=== PATIENT | female | born 1950 | race Caucasian/White ===

== ENCOUNTER 2019-02-17 07:09 | Inpatient (IN) | payer MEDICARE, BC ==
[~2019-02-17 07:09] MED LIST: CEFAZOLIN 2 Gram 2 GM/50 ML BAG IVPB SCH; CELECOXIB 100 MG CAPSULE PO ONE; FAMOTIDINE 20MG TABLET PO ONE; MECLIZINE 25 MG TABLET PO ONE; METOCLOPRAMIDE 10 MG TABLET PO ONE; VANCOMYCIN 1GM/200ML PREMIX 1 GM/200 ML PIGGYBACK IVPB SCH
[2019-02-17] MEDS ORDERED: RINGERS SOLUTION,LACTATED 1,000 ML IV ONE ×3 (07:50→10:09)
[2019-02-17 08:19] LABS: ABO GROUP A; ANTIBODY SCREEN NEGATIVE (NEGATIVE); RH TYPE POSITIVE
[2019-02-17] MEDS ORDERED: BUPIVACAINE 0.5% W/EPI MPF 30 ML VIAL SQ ONE (09:50)
[2019-02-17] MEDS ORDERED: TRAMADOL HCL 50 MG TABLET PO PRN (11:19)
[2019-02-17] MEDS ORDERED: HYDROMORPHONE HCL 2 MG/ML VIAL IM PRN (11:19)
[2019-02-17] MEDS ORDERED: MAGNESIUM HYDROXIDE 30 ML UDC PO PRN (11:19)
[2019-02-17] MEDS ORDERED: NALOXONE 0.4 MG/1 ML VIAL IVP PRN (11:19)
[2019-02-17] MEDS ORDERED: ACETAMINOPHEN W/ CODEINE 300MG/60MG TABLET PO PRN ×2 (11:19)
[2019-02-17] MEDS ORDERED: BISACODYL 10 MG SUPP RC PRN (11:19)
[2019-02-17] MEDS ORDERED: ZOLPIDEM TARTRATE 5 MG TABLET PO PRN (11:19)
[2019-02-17] MEDS ORDERED: ONDANSETRON HCL IV 4 MG/2 ML VIAL IVP PRN (11:19)
[2019-02-17] MEDS ORDERED: AL HYDROX/MAG HYDROX 30ML UD PO PRN (11:19)
[2019-02-17] MEDS ORDERED: HYDROCODONE/APAP 10/325 TABLET PO PRN (11:19)
[2019-02-17] MEDS ORDERED: KETOROLAC 30 MG/ML VIAL IVP PRN ×2 (11:19)
[2019-02-17] MEDS ORDERED: DIPHENHYDRAMINE HCL 25 MG CAPSULE PO PRN (11:19)
[2019-02-17] MEDS: BUSPIRONE 10 MG PO SCH ×3 (13:28→22:08)
[2019-02-17] MEDS ORDERED: GLYCOPYRROLATE 0.2 MG/ML ML IV ONE (14:00)
[2019-02-17] MEDS ORDERED: EPHEDRINE SULFATE 50 MG/ML ML IV ONE (14:00)
[2019-02-17] MEDS ORDERED: 0.9 % SODIUM CHLORIDE 10 ML VIAL IVP ONE (14:00)
[2019-02-17] MEDS ORDERED: KETAMINE HCL 100MG/1ML VIAL INJ ONE (14:00)
[2019-02-17] MEDS ORDERED: PROPOFOL 10 MG/ML VIAL IV ONE (14:00)
[2019-02-17] MEDS ORDERED: ROPIVACAINE HCL (NAROPIN) /PF 5MG/ML 20ML VIAL IV ONE (14:00)
[2019-02-17] MEDS ORDERED: PHENYLEPHRINE HCL 10 MG/ML VIAL IVP ONE (14:00)
[2019-02-17] MEDS ORDERED: DEXAMETHASONE 4 MG/ML 1ML VIAL IVP ONE (14:00)
[2019-02-17] MEDS ORDERED: MIDAZOLAM HCL 2MG/2ML VIAL IV ONE (14:00)
--- NOTE | 2019-02-17 16:10 | Rehab Evaluation ---
Patient Information - Patient Information Diagnosis: DJD L hip Ordered Treatment: PT Evaluate and Treat Status: Initial Evaluation Surgery: Yes (THR L LE) Date of Surgery: 02/17/19 Past Medical/Surgical Hx: PAST MEDICAL/SURGICAL HISTORY Past Surgical History FACET INJECTION PMH - Respiratory Hx Respiratory Disorders No PMH - Cardiovascular Hx Cardiovascular Disorders Yes Hx Abnormal EKG Yes Hx Hypotension Yes: RUNS A LITTLE LOW D/T HEART MEDS Hx Irregular Heartbeat Yes: TACCHYCARDIA ONSET 2013 R/T ANXIETY.CONTROL W MEDS Exercise Tolerance Fair Comment: SEES CARDIO EVERY 6 MONTHS. PT WAS VERY ACTIVE BEFORE HIP PAIN STARTED PMH - Neuro Hx Neurological Disorders No PMH - GI Hx Gastrointestinal Disorders Yes Hx of Loss of Appetite Yes: TAKES MEDS TO BOOST APPETITE POOR APPETITE W ANXIETY PMH - Hx Genitourinary Disorders No Hx Age of Menopause 60 PMH - Endocrine Hx Endocrine Disorders No PMH - Musculoskeletal Hx Musculoskeletal Disorders Yes Hx Arthritis Yes: LEFT HIP Hx Gout Yes: POSSIBLY PMH - Psych Hx Psychiatric Problems Yes Hx Anxiety Yes: EXTREME VERY ANXIOUS ABOUT SX Hx Depression Yes PMH - Hematology/Oncology Hx Hematology/Oncology No Disorders Premorbid Status: Detail (The patient was independent with all mobility prior to surgery and was very active.) Social History: Detail (The patient lives with spouse in a one story house with 2 steps at the enterance and no railings. The bathroom is equipped with : a walk in shower, standard height toilet with a riser seat and shower bench. The patient has a walker with wheels.) Precautions: [place], Fall, Other (THR precautions L LE) - Time With Patient Total Time Spent With Patient (Min): 30 Treatment Procedures: Detail (Initial Evaluation, gait training) Subjective Information - Subjective Information Per Patient (The patient had complaints of left hip pain level 3 using 0-10 pain scale.) Objective Data - Mental Status Patient Orientation: Oriented x3 - Visual Perception Appears within normal limits for therapeutic activities - ROM Not within normal limits (The patient's L hip was within THR precautions. All other LE AROM was WNL.) - Strength/Tone Not within normal limits (The patient's L LE strength was not tested s/p surgery, however was functional ie: patient was able to lift LE off bed. R LE strength was WFL,) - Bed Mobility Independent (The patient was independent with supine to and from sit, following THR precautions and scooting up in bed.) - Transfers Independent (The patient was independent with sit to stand and toilet transfers.) - Balance Balance Sitting: Good Balance Standing: Good - Gait Detail (The patient ambulated with front wheeled walker a distance of 80 feet x 1 WBAT on the L LE with supervision for safety only.) Therapy Assessment - Therapy Assessment Detail (The patient was independent with bed mobility and transfers and ambulates with supervision. Feel the patient will progress well with mobility.) Patient Education - Patient Education Teaching Topic: Precautions (The patient was able to indentify THR precautions.) Response: Return Demonstration Teaching Method: Handout Teaching Recipient: Patient Barriers To Learning: None Problem List - Problem List Physical Therapy Problem List: Detail (Decreased L LE strength) Goals - Goals Physical Therapy Goals: 1) The patient will be independent with THR HEP. 2) The patient will ambulate on stairs with supervision for safety using proper technique. Prognosis - Prognosis Good Plan - Plan Physical Therapy Plan: PT 1-2 sessions with gait training on levels and stairs and instruction in HEP.
[2019-02-17] MEDS: CEFAZOLIN 2 Gram 2 GM/50 ML BAG IVPB SCH (16:13)
[2019-02-17] MEDS: PATIENT OWN MED: CLONAZEPAM 0.5 MG PO SCH ×2 (16:21→22:07)
[2019-02-17] MEDS: HYDROCODONE/APAP 10/325 TABLET PO PRN ×2 (18:02→22:04)
[2019-02-17] MEDS: POTASSIUM CHLORIDE/D5-0.9%NACL 20 MEQ/1,000 ML BAG IV SCH (18:04)
[2019-02-17] MEDS ORDERED: DILTIAZEM 180 MG PO SCH (22:00)
[2019-02-17] MEDS: ACETAMINOPHEN 325 MG TAB PO PRN (22:04)
[2019-02-17] MEDS: DOCUSATE SODIUM 100 MG CAPSULE PO SCH (22:06)
[2019-02-18] MEDS: POTASSIUM CHLORIDE/D5-0.9%NACL 20 MEQ/1,000 ML BAG IV SCH ×2 (02:15→08:52)
[2019-02-18] MEDS: HYDROCODONE/APAP 10/325 TABLET PO PRN ×3 (02:23→11:54)
[2019-02-18] MEDS: ACETAMINOPHEN 325 MG TAB PO PRN ×3 (02:23→11:55)
[2019-02-18] MEDS: CEFAZOLIN 2 Gram 2 GM/50 ML BAG IVPB SCH ×2 (02:25→09:41)
[2019-02-18] MEDS: BUSPIRONE 10 MG PO SCH ×2 (06:09→09:43)
[2019-02-18 07:13] LABS: HEMATOCRIT 31.3 % (35.0-47.0)
[2019-02-18 07:27] LABS: BLOOD UREA NITROGEN 9 mg/dL (8-23); CREATININE 0.6 mg/dL (0.5-0.9); EST GLOMERULAR FILTRATION RATE > 60 mL/min; GLUCOSE,RANDOM 165 mg/dL (74-109)
[2019-02-18] MEDS ORDERED: PATIENT OWN MED: CLONAZEPAM 0.5 MG PO SCH (09:15)
[2019-02-18] MEDS: DOCUSATE SODIUM 100 MG CAPSULE PO SCH (09:42)
[2019-02-18] MEDS ORDERED: MULTIVITAMINS/MINERALS TABLET PO SCH (10:00)
[2019-02-18] MEDS ORDERED: FERROUS SULFATE 325 MG TAB PO SCH (10:00)
[2019-02-18] MEDS ORDERED: RIVAROXABAN 10 MG TABLET PO SCH (10:00)
[2019-02-18] MEDS ORDERED: CHOLECALCIFEROL 1,000 UNIT TABLET PO SCH (10:00)
--- NOTE | 2019-02-18 10:43 | Rehab Evaluation ---
Patient Information - Patient Information Diagnosis: DJD L hip Ordered Treatment: OT Evaluate and Treat Status: Initial Evaluation Surgery: Yes (THR L LE) Date of Surgery: 02/17/19 Past Medical/Surgical Hx: PAST MEDICAL/SURGICAL HISTORY Past Surgical History FACET INJECTION PMH - Respiratory Hx Respiratory Disorders No PMH - Cardiovascular Hx Cardiovascular Disorders Yes Hx Abnormal EKG Yes Hx Hypotension Yes: RUNS A LITTLE LOW D/T HEART MEDS Hx Irregular Heartbeat Yes: TACCHYCARDIA ONSET 2013 R/T ANXIETY.CONTROL W MEDS Exercise Tolerance Fair Comment: SEES CARDIO EVERY 6 MONTHS. PT WAS VERY ACTIVE BEFORE HIP PAIN STARTED PMH - Neuro Hx Neurological Disorders No PMH - GI Hx Gastrointestinal Disorders Yes Hx of Loss of Appetite Yes: TAKES MEDS TO BOOST APPETITE POOR APPETITE W ANXIETY PMH - Hx Genitourinary Disorders No Hx Age of Menopause 60 PMH - Endocrine Hx Endocrine Disorders No PMH - Musculoskeletal Hx Musculoskeletal Disorders Yes Hx Arthritis Yes: LEFT HIP Hx Gout Yes: POSSIBLY PMH - Psych Hx Psychiatric Problems Yes Hx Anxiety Yes: EXTREME VERY ANXIOUS ABOUT SX Hx Depression Yes PMH - Hematology/Oncology Hx Hematology/Oncology No Disorders Premorbid Status: Detail (The patient was independent with all mobility prior to surgery and was very active.) Social History: Detail (The patient lives with spouse in a one story house with 2 steps at the enterance and no railings. The bathroom is equipped with : a walk in shower, standard height toilet with a riser seat and shower bench. The patient has a walker with wheels.) Precautions: [place], Fall, Other (posterior THR precautions L LE) - Time With Patient Total Time Spent With Patient (Min): 32 (1 E 1 SC (9:15 - 9:47)) Treatment Procedures: Detail (OT eval: low complexity) Subjective Information - Subjective Information Per Patient (Ok to see per RN. Pt agreeable to OT eval and Tx.) Objective Data - Pain Pain Present: No Pain Scale Used: Numeric (1 - 10) (0/10) - Mental Status Patient Orientation: Oriented x3 - Visual Perception Appears within normal limits for therapeutic activities - ROM Within normal limits - Strength/Tone Within normal limits - Coordination Appears within normal limits for therapeutic activities - Bed Mobility Independent (Supine >< EOB) - Transfers Independent (sit >< stand from elevated and lower surfaces, initial verbal instruction to maintain MURIEL prec, progressing to MOD I with good awareness of hip prec.) - Balance Balance Sitting: Good Balance Standing: Good - Sensation Intact - Gait Detail (CGA progressing to MOD I with FWW EOB >< BSC over toilet, Pt demos good awareness of hip precautions end of session.) - ADL's/IADL's Detail (OT verbalizes 1/3 hip prec at start of session, educ. Pt on posterior MURIEL precautions, adaptive tech for LB dressing with modified tech. and AE to maintain hip prec. during LB dressing. Supervision progressing to MOD I to don/doff socks, underwear, pants, shirt at EOB. OT educ. Pt on adaptive tech. for car TF, kitchen and bathroom safety, Pt verbalizes understanding.) - Special Tests No Therapy Assessment - Therapy Assessment Detail (Pt demos safety and MOD I with LB dressing and verbalizes safe technique for home tasks with good safety awareness of hip prec at end of session. Ready for home DC with spouse assist as needed when medically ready.) Patient Education - Patient Education Teaching Topic: Equipment Use, Precautions Response: Return Demonstration, Verbalize Understanding Teaching Method: Discussion, Demonstration Teaching Recipient: Patient Barriers To Learning: None Problem List - Problem List Physical Therapy Problem List: Detail (Decreased L LE strength) Occupational Therapy Problem List: Detail (No further OT needs identified.) Goals - Goals Physical Therapy Goals: 1) The patient will be independent with THR HEP. 2) The patient will ambulate on stairs with supervision for safety using proper technique. Occupational Therapy Goals: No further OT needs/goals identified. Prognosis - Prognosis Good Plan - Plan Physical Therapy Plan: PT 1-2 sessions with gait training on levels and stairs and instruction in HEP. Occupational Therapy Plan: No further IP OT needs identified, DC inpatient OT. Thank you for this referral.
--- NOTE | 2019-02-18 13:35 | Physical Therapy Tx Note ---
Physical Therapy Tx Note - Treatment Note Tolerated: Good Total Time Spent With Patient: 35 Physical Therapy Tx Note: Detail (PT was lying in bed a/o upon arrival. Patient ambulated 140 feet with front wheeled walker contact guard. Pt descended and ascended 3 steps using walker in hand oppisite of handrail. Pt performed SLR (with assistance), glute squeezes, hamstring set, quad set, heel slides an dankle pumps x10ea. Pt was educated on hip precautions. Pt was left lying in bed with call light. Pt was able to complete all goals of PT.) Physical Therapy Problem List: Detail (Decreased L LE strength) Physical Therapy Goals: 1) The patient will be independent with THR HEP. 2) The patient will ambulate on stairs with supervision for safety using proper technique. Prognosis: Good Physical Therapy Plan: PT 1-2 sessions with gait training on levels and stairs and instruction in HEP. Pt to be discharged from PT at this time as all goals are met.
--- NOTE | 2019-02-19 07:50 | Discharge Summary ---
DATE OF ADMISSION: 02/17/2019 DATE OF DISCHARGE: 02/18/2019 DATE OF SURGERY: 02/17/2019 HISTORY: The patient is a delightful 68-year-old female who presents with end- stage arthrosis of her left hip. She was admitted after a left total hip arthroplasty. Postoperatively, she did great. Her hospital course was unremarkable. She was independent basically the night of surgery. A discharge hemoglobin was 10 and did not require transfusion. The plan is to transfer to home in the care of her family. Home PT visiting nurse has been arranged. She will be given Mil[place] for pain and Xarelto followed by aspirin for DVT prophylaxis. She will follow up in my office in 4 weeks. PRIMARY DIAGNOSIS: End-stage arthrosis of left hip. SECONDARY DIAGNOSIS: Operative blood loss anemia. OPERATIONS AND PROCEDURES: Cementless left total hip arthroplasty. CHUCHO
--- NOTE | 2019-02-19 07:50 | Operative Note ---
DATE OF SURGERY: 02/17/2019 PREOPERATIVE DIAGNOSIS: Degenerative joint disease of the left hip. POSTOPERATIVE DIAGNOSIS: Degenerative joint disease of the left hip. OPERATION: Left total hip arthroplasty using Stanton and Nephew components with a size 52 no-hole Reflection cup, 35-degree offset 32 mm diameter highly crosslinked liner, a size 14 high-offset cementless [place] stem with a -3 32 mm diameter Oxinium head. STAFF SURGEON: Cj Barnes MD ANESTHESIA: Spinal. PREPARATION: Chloraprep. INDIVIDUAL CONSIDERATIONS: None. PROCEDURE: The patient was taken to the operating room, placed supine on the operating room table. She had a successful induction of spinal anesthetic. She was then placed on her side and her left lower extremity was prepped and draped in the usual fashion. The patient had a direct posterior approach to the hip. Sharp dissection carried down through skin and subcutaneous tissues. Small veins were coagulated with a Bovie. The tensor gluteal fascia was opened along the entire length of the incision, and deep retractors were placed. Short external rotators were identified, piriformis fossa removed exposing the posterior capsule. Once I entered the posterior capsule, there was a large lord of clear fluid. A posterior capsulectomy was performed. Hip was dislocated posteriorly. The patient had a very large lesion on the femoral head near the weightbearing area. It almost looked like a piece was bitten off like an apple. A femoral neck cut was then made about a fingerbreadth above the lesser troch. Rim capsulectomy was performed. Starting with a 45 to medialize, I reamed to the introitus and to the medial wall to a 51 for a size 52 cup. I slightly under-reamed to 50. After irrigation, I impacted a size 52 no-hole Reflection cup in 20 degrees of forward flexion and 40 degrees of abduction using the extraarticular alignment guide and bony landmarks. After irrigation, the center cap screw was placed. Then I impacted the liner which is a 35-degree offset 32 mm diameter liner. I p ut the offset posteriorly and inferiorly. This gave an excellent stable acetabular construct, and this was packed off. The proximal femur was delivered into the wound, and box cutting osteotome was used to remove the proximal metaphyseal bone. Mid stem reaming was done to a 13 and then to a 14. I broached to a 14, which gave a solid fit. After calcar reaming, I followed the natural anteversion angle which is about between 25-30 degrees. With a -3 high-offset head and neck combination, there was excellent stability. I removed the trial, irrigated out completely, and then impacted the size 14 high-offset [place] stem with solid cementless fication and solid calcar contact. I irrigated, dried the Mitchell taper, and impacted a -3 Oxinium head 32 mm. Reduced the hip, solid anterior stability with a full extension and external rotation, I actually had full posterior stability. I could not actually dislocate the hip. I flexed her up to knee-chest, internally rotated about 40 degrees, still stable. At 90 degrees of flexion and 90 degrees of internal rotation, still had stability. The sciatic nerve was inspected and found to be completely intact. Hemostasis was obtained with a Bovie. After irrigation, I went ahead and then put 30 mL of saline mixed with 1 g of tranexamic acid. The tensor gluteal fascia was closed with a running #2 quill, subcu was closed in layers with running 0 quill, skin was closed with 3-0 quill, reinforced with Steri-Strips. We infiltrated the skin and subcutaneous tissue with 30 mL of 0.5% Marcaine with epinephrine. A sterile bulky compressive PEACE-type dressing was applied. The patient tolerated the procedure well. Needle and sponge counts were correct. Estimated blood loss was minimal. She was taken back to recovery in good condition. There were no complications. CHUCHO
== END 2019-02-18 12:40 | disposition home health service (06) | DRG 470 ==
LOC: MEDSURG 07:09
PROVIDERS: ADMIT Orthopaedic Surgery; ATTEND Orthopaedic Surgery
PROC: 0SRB06A Replacement of Left Hip Joint with Oxidized Zirconium on Polyethylene Synthetic Substitute, Uncemented, Open Approach (ICD-10-PCS; principal; 2019-02-17 09:00)
DX: M16.12 Unilateral primary osteoarthritis, left hip (principal); R00.0 Tachycardia, unspecified; F41.9 Anxiety disorder, unspecified; Z20.6 Contact with and (suspected) exposure to human immunodeficiency virus [HIV]
CPT/HCPCS: 76942; 80048; 85014; 85018; 86850; 86900; 86901; 87390; 97110; 97535; C1776; J2370; J3480; J3490; J7120